=== PATIENT | female | born 1995 | race Caucasian/White ===

== ENCOUNTER 2020-11-29 23:03 | Inpatient (IN) ==
[2020-11-29] MEDS ORDERED: LORazepam 1 MG TAB SL STA (23:41)
[2020-11-30 00:07] LABS: Basophils # (auto) 0.02 K/uL (0-0.2); Basophils % (auto) 0.2 %; Eosinophils # (auto) 0.08 K/uL (0-0.5); Eosinophils % (auto) 0.7 %; Hematocrit (blood only) 42.5 % (37-47); Immature Granulocytes # (auto) 0.02 K/uL (0.00-0.02); Immature Granulocytes % (auto) 0.2 %; Lymphocytes # (auto) 1.99 K/uL (1.2-3.4); Mean Corpuscular Hemoglobin 32.2 pg (25-34); Mean Corpuscular Hgb Conc 35.3 g/dL (32-36); Mean Corpuscular Volume 91.2 fL (80-100); Mean Platelet Volume 9.6 fL (7.4-10.4); Monocytes # (auto) 0.91 K/uL (0.11-0.59); Monocytes % (auto) 8.2 %; Neutrophils # (auto) 8.03 K/uL (1.4-6.5); Neutrophils % (auto) 72.7 %; Platelet Count 322 K/uL (130-400); RDW Coefficient of Variation 12.2 % (11.5-14.5); Red Blood Count 4.66 M/uL (4.2-5.4); White Blood Count 11.05 K/uL (4.8-10.8)
[2020-11-30 00:10] LABS: Appearance Urine Clear (Clear); Bilirubin Urine Negative (Negative); Blood Urine Negative (Negative); Color Urine Yellow; Glucose Urine UA Negative (Negative); Ketones Urine Negative (Negative); Leukocyte Esterase Urine Negative (Negative); Nitrite Urine Negative (Negative); Protein Urine Negative (Negative); Specific Gravity Urine 1.016 (1.000-1.030); Urobilinogen Urine Negative (Negative); pH Urine 5.5 (4.5-7.5)
[2020-11-30 00:33] LABS: Albumin Level 4.4 gm/dl (3.4-5.0); BUN Creatinine Ratio 19.1 (10-20); Creatinine Clr Calc Pharmacy 146.9 ml/min; Est GFR (African American) 136.8 ml/min; Potassium 4.1 mmol/L (3.5-5.1)
[2020-11-30 00:37] LABS: Amphetamines+Metham, Urine Neg (Neg); Barbiturates, Urine Neg (Neg); Benzodiazepine, Urine Neg (Neg); Cocaine, Urine Neg (Neg); MDMA (Ecstacy), Urine Neg (Neg); Methadone, Urine Neg (Neg); Opiate, Urine Neg (Neg); Phencyclidine, Urine Neg (Neg)
[2020-11-30 00:38] LABS: Pregnancy Test, Serum Negative (Negative)
[2020-11-30 00:44] LABS: Acetaminophen < 2 ug/ml (10-30); Albumin Globulin Ratio 1.3 (0.9-2); Bilirubin,Total 0.8 mg/dl (0.2-1); Globulin 3.4 gm/dl (2.5-4.0); Salicylate < 1.7 mg/dl (2.8-20); Thyroid Stimulating Hormone 1.64 uIu/ml (0.300-4.500); Total Protein 7.9 gm/dl (6.4-8.2)
--- NOTE | 2020-11-30 00:56 | Emergency Department Note ---
Impression & Plan Mood disorder, Agitation ED Provider Note NAME: ATA AIKEN AGE: 25 SEX: F : 1995 ARRIVES VIA: Walk-In INFORMANT: Patient, ED PROVIDER(S): Juan Rader MD CHIEF COMPLAINT: Suicidal ideation HPI: This is a 25-year-old female who presents emergency department complaining of suicidal ideation. Patient reports she has been having suicidal thoughts for the past 2 days. Patient reports she is a previous suicide attempt and that she does have a plan. She reports she feels she needs medication adjustments including to her lithium. She has not done anything for the suicidal thoughts. She reports reports nothing really makes them better or worse. ROS: See above HPI for pertinent positives & negatives. A total of 10 systems reviewed and were otherwise negative. PAST MEDICAL HISTORY: See Below PAST SURGICAL HISTORY: See Below FAMILY HISTORY: See Below SOCIAL HISTORY: See Below HOME MEDICATIONS: See Below ALLERGIES: See Below VITALS: See Below PHYSICAL EXAMINATION: VITAL SIGNS - Vital signs and nursing notes were reviewed. GENERAL - 25-year-old female appearing stated age who is in no acute distress. Patient does appear agitated and is pacing around the room. SKIN - Without rashes. HEAD - NC/AT. EYES - PERRL with EOMI bilaterally. Sclera anicteric. Palpebral conjunctiva pink and moist with no injection noted. EARS - No deformities of external structures noted on gross examination bilaterally. NOSE - Midline and without cyanosis. No epistaxis or purulent drainage noted. Septum midline without deviation or septal hematoma noted. MOUTH/OROPHARYNX - Without perioral cyanosis. Buccal mucosa pink and moist and without leukoplakia. Tongue midline with equal elevation of palate bilaterally. No tonsillar hypertrophy, erythema, or exudates noted. NECK - Neck with FROM. Supple to palpation. No nuchal rigidity. LUNGS - Chest wall symmetric without accessory muscle use, intercostals retractions, or central cyanosis. Normal vesicular breath sounds CTA B/L. No wheezes, rales, or rhonchi appreciated. CARDIAC - RRR with S1/S2. No murmur, rubs, or gallops appreciated. ABDOMEN - Abdominal contour BS normoactive all four quadrants. No tenderness, palpable masses, hepatosplenomegaly, or ascites noted. EXTREMITIES - No clubbing or peripheral cyanosis. No pretibial edema present. +3/5 radial, posterior tibial, and dorsalis pedis pulses palpated throughout. +5/5 strength noted in UE/LE bilaterally. NEUROLOGIC - Cranial nerves II through XII grossly intact. Sensory intact to light touch throughout. Patellar reflexes +2/4. PSYCH - A&Ox3 and cooperates fully with examiner. Pt is very pleasant and interacts well with examiner. MEDICAL DECISION MAKING: Patient was seen and evaluated as above in room A6. Review was performed of sam sing notes and vital signs. I did review pertinent previous visits and patient history. After obtaining a thorough history and physical examination the above work up was performed. This is 25-year-old female who presents emergency department complaining of depression with suicidal plan. The patient it appears agitated and is pacing around the room. She was given Ativan to help her calm down. She was medically cleared by me and independently evaluated by psychiatric case management. She was subsequently admitted to [facility]. The patient was evaluated during a period of high volume and high acuity during the global COVID-19 pandemic, and that diagnosis was suspected/considered upon their initial presentation. Their evaluation, treatment and testing was consistent with current guidelines for patients who present with complaints or symptoms that may be related to COVID-19. Patient was seen while provider was wearing PPE. Triage Nursing notes reviewed. Prior medical records reviewed Vital Signs: reviewed and remarkable for no significant abnormalities Differential diagnosis: Mood disorder, infection, hypoglycemia, electrolyte abnormalities, cardiac sources, intracerebral event, toxicologic, trauma, neurologic, as well as other pathologies. ER treatment provided: See below Consultation(s): [facility] Past Med/Surg History Medical History (Updated 11/30/20 @ 05:51 by Juan Rader MD) Bipolar 1 disorder Social History Smoking Status: Never smoker Preferred Language: Marshallese Communication Ability: Effective All Purpose Clerk Required: No Beliefs That Will Affect Care: None Feels Safe at Home: Yes Assistive Devices: Glasses Allergies Allergies Allergy/AdvReac Type Severity Reaction Status Date / Time trazodone Allergy Headache Verified 11/29/20 23:51 Home Meds Home Medications Medication Instructions Recorded Confirmed Abilify 11/29/20 lithium carbonate 11/29/20 aripiprazole mg 11/30/20 hydroxyzine pamoate 11/30/20 levothyroxine 11/30/20 lithium carbonate mg PO 11/30/20 prazosin 11/30/20 Results & Data (ED) Vital Signs Vital Signs - 24 hr 11/29/20 23:09 11/30/20 02:36 Temperature 36.8 C Temperature Source Temporal Artery Scan Pulse Rate 88 Pulse Rate [Finger] 101 H Pulse Rhythm [Finger] Regular Respiratory Rate 18 20 Respiratory Depth Normal Normal Blood Pressure 132/87 Blood Pressure [Left Arm] 125/83 Blood Pressure Mean 102 Blood Pressure Mean [Left Arm] 97 Pulse Oximetry 97 98 Oxygen Delivery Method Room Air Room Air Sepsis Recent Fever Within 48 Hours No Sepsis New/Unexplained Change in Mental Status N/A Sepsis Action Taken by Nursing No Action Required Laboratory Data Result diagrams: 11/29/20 23:50 11/29/20 23:50 Lab Results 11/29/20 11/29/20 11/29/20 Range/Units 23:20 23:20 23:50 WBC 11.05 H (4.8-10.8) K/uL RBC 4.66 (4.2-5.4) M/uL Hgb 15.0 (12.0-16.0) g/dL Hct 42.5 (37-47) % MCV 91.2 (80-100) fL MCH 32.2 (25-34) pg MCHC 35.3 (32-36) g/dL RDW Std Deviation 41.0 (36.4-46.3) fL RDW Coeff of Collette 12.2 (11.5-14.5) % Plt Count 322 (130-400) K/uL MPV 9.6 (7.4-10.4) fL Immature Gran % (Auto) 0.2 % Neut % (Auto) 72.7 % Lymph % (Auto) 18.0 % [place] % (Auto) 8.2 % Eos % (Auto) 0.7 % Baso % (Auto) 0.2 % Neut # (Auto) 8.03 H (1.4-6.5) K/uL Lymph # (Auto) 1.99 (1.2-3.4) K/uL [place] # (Auto) 0.91 H (0.11-0.59) K/uL Eos # (Auto) 0.08 (0-0.5) K/uL Baso # (Auto) 0.02 (0-0.2) K/uL Immature Gran # (Auto) 0.02 (0.00-0.02) K/uL Sodium (136-145) mmol/L Potassium (3.5-5.1) mmol/L Chloride (98-107) mmol/L Carbon Dioxide (21-32) mmol/L Anion Gap (3-11) BUN (7-18) mg/dl Creatinine (0.6-1.2) mg/dl Est Cr Clr Drug Dosing ml/min Est GFR ( Amer) ml/min Est GFR (Non-Af Amer) ml/min BUN/Creatinine Ratio (10-20) Glucose (70-99) mg/dl Calcium (8.5-10.1) mg/dl Total Bilirubin (0.2-1) mg/dl AST (15-37) U/L ALT (12-78) U/L Alkaline Phosphatase (45-117) U/L Total Protein (6.4-8.2) gm/dl Albumin (3.4-5.0) gm/dl Globulin (2.5-4.0) gm/dl Albumin/Globulin Ratio (0.9-2) TSH (0.300-4.500) uIu/ml HCG, Qual (Negative) Urine Color Yellow Urine Appearance Clear (Clear) Urine pH 5.5 (4.5-7.5) Ur Specific [place] 1.016 (1.000-1.030) Urine Protein Negative (Negative) Urine Glucose (UA) Negative (Negative) Urine Ketones Negative (Negative) Urine Blood Negative (Negative) Urine Nitrite Negative (Negative) Urine Bilirubin Negative (Negative) Urine Urobilinogen Negative (Negative) Ur Leukocyte Esterase Negative (Negative) Salicylates (2.8-20) mg/dl Urine Opiates Screen Neg (Neg) Ur Methadone, Qual Neg (Neg) Acetaminophen (10-30) ug/ml Urine Barbiturates Neg (Neg) Ur Phencyclidine (PCP) Neg (Neg) U Amphetamin/Meth Scrn Neg (Neg) MDMA (Ecstasy) Screen Neg (Neg) U Benzodiazepines Scrn Neg (Neg) [place] (0.6-1.2) mmol/L Ur Cocaine Metabolite Neg (Neg) U Marijuana (THC) Screen Neg (Neg) Ethyl Alcohol mg/dL (0-3) mg/dl COVID-19 Eval Order SARS-CoV-2 (PCR) (Negative) 11/29/20 11/29/20 11/29/20 Range/Units 23:50 23:50 23:50 WBC (4.8-10.8) K/uL RBC (4.2-5.4) M/uL Hgb (12.0-16.0) g/dL Hct (37-47) % MCV (80-100) fL MCH (25-34) pg MCHC (32-36) g/dL RDW Std Deviation (36.4-46.3) fL RDW Coeff of Collette (11.5-14.5) % Plt Count (130-400) K/uL MPV (7.4-10.4) fL Immature Gran % (Auto) % Neut % (Auto) % Lymph % (Auto) % [place] % (Auto) % Eos % (Auto) % Baso % (Auto) % Neut # (Auto) (1.4-6.5) K/uL Lymph # (Auto) (1.2-3.4) K/uL [place] # (Auto) (0.11-0.59) K/uL Eos # (Auto) (0-0.5) K/uL Baso # (Auto) (0-0.2) K/uL Immature Gran # (Auto) (0.00-0.02) K/uL Sodium 138 (136-145) mmol/L Potassium 4.1 (3.5-5.1) mmol/L Chloride 109 H (98-107) mmol/L Carbon Dioxide 21 (21-32) mmol/L Anion Gap 8.0 (3-11) BUN 14 (7-18) mg/dl Creatinine 0.72 (0.6-1.2) mg/dl Est Cr Clr Drug Dosing 146.9 ml/min Est GFR ( Amer) 136.8 ml/min Est GFR (Non-Af Amer) 118.0 ml/min BUN/Creatinine Ratio 19.1 (10-20) Glucose 90 (70-99) mg/dl Calcium 9.0 (8.5-10.1) mg/dl Total Bilirubin 0.8 (0.2-1) mg/dl AST 21 (15-37) U/L ALT 30 (12-78) U/L Alkaline Phosphatase 84 (45-117) U/L Total Protein 7.9 (6.4-8.2) gm/dl Albumin 4.4 (3.4-5.0) gm/dl Globulin 3.4 (2.5-4.0) gm/dl Albumin/Globulin Ratio 1.3 (0.9-2) TSH 1.640 (0.300-4.500) uIu/ml HCG, Qual (Negative) Urine Color Urine Appearance (Clear) Urine pH (4.5-7.5) Ur Specific [place] (1.000-1.030) Urine Protein (Negative) Urine Glucose (UA) (Negative) Urine Ketones (Negative) Urine Blood (Negative) Urine Nitrite (Negative) Urine Bilirubin (Negative) Urine Urobilinogen (Negative) Ur Leukocyte Esterase (Negative) Salicylates < 1.7 L (2.8-20) mg/dl Urine Opiates Screen (Neg) Ur Methadone, Qual (Neg) Acetaminophen < 2 L (10-30) ug/ml Urine Barbiturates (Neg) Ur Phencyclidine (PCP) (Neg) U Amphetamin/Meth Scrn (Neg) MDMA (Ecstasy) Screen (Neg) U Benzodiazepines Scrn (Neg) [place] (0.6-1.2) mmol/L Ur Cocaine Metabolite (Neg) U Marijuana (THC) Screen (Neg) Ethyl Alcohol mg/dL < 3.0 (0-3) mg/dl COVID-19 Eval Order SARS-CoV-2 (PCR) (Negative) 11/29/20 11/29/20 11/30/20 Range/Units 23:50 23:50 00:25 WBC (4.8-10.8) K/uL RBC (4.2-5.4) M/uL Hgb (12.0-16.0) g/dL Hct (37-47) % MCV (80-100) fL MCH (25-34) pg MCHC (32-36) g/dL RDW Std Deviation (36.4-46.3) fL RDW Coeff of Collette (11.5-14.5) % Plt Count (130-400) K/uL MPV (7.4-10.4) fL Immature Gran % (Auto) % Neut % (Auto) % Lymph % (Auto) % [place] % (Auto) % Eos % (Auto) % Baso % (Auto) % Neut # (Auto) (1.4-6.5) K/uL Lymph # (Auto) (1.2-3.4) K/uL [place] # (Auto) (0.11-0.59) K/uL Eos # (Auto) (0-0.5) K/uL Baso # (Auto) (0-0.2) K/uL Immature Gran # (Auto) (0.00-0.02) K/uL Sodium (136-145) mmol/L Potassium (3.5-5.1) mmol/L Chloride (98-107) mmol/L Carbon Dioxide (21-32) mmol/L Anion Gap (3-11) BUN (7-18) mg/dl Creatinine (0.6-1.2) mg/dl Est Cr Clr Drug Dosing ml/min Est GFR ( Amer) ml/min Est GFR (Non-Af Amer) ml/min BUN/Creatinine Ratio (10-20) Glucose (70-99) mg/dl Calcium (8.5-10.1) mg/dl Total Bilirubin (0.2-1) mg/dl AST (15-37) U/L ALT (12-78) U/L Alkaline Phosphatase (45-117) U/L Total Protein (6.4-8.2) gm/dl Albumin (3.4-5.0) gm/dl Globulin (2.5-4.0) gm/dl Albumin/Globulin Ratio (0.9-2) TSH (0.300-4.500) uIu/ml HCG, Qual Negative (Negative) Urine Color Urine Appearance (Clear) Urine pH (4.5-7.5) Ur Specific [place] (1.000-1.030) Urine Protein (Negative) Urine Glucose (UA) (Negative) Urine Ketones (Negative) Urine Blood (Negative) Urine Nitrite (Negative) Urine Bilirubin (Negative) Urine Urobilinogen (Negative) Ur Leukocyte Esterase (Negative) Salicylates (2.8-20) mg/dl Urine Opiates Screen (Neg) Ur Methadone, Qual (Neg) Acetaminophen (10-30) ug/ml Urine Barbiturates (Neg) Ur Phencyclidine (PCP) (Neg) U Amphetamin/Meth Scrn (Neg) MDMA (Ecstasy) Screen (Neg) U Benzodiazepines Scrn (Neg) [place] < 0.2 L (0.6-1.2) mmol/L Ur Cocaine Metabolite (Neg) U Marijuana (THC) Screen (Neg) Ethyl Alcohol mg/dL (0-3) mg/dl COVID-19 Eval Order Covid19 at [facility] SARS-CoV-2 (PCR) (Negative) 11/30/20 Range/Units 00:25 WBC (4.8-10.8) K/uL RBC (4.2-5.4) M/uL Hgb (12.0-16.0) g/dL Hct (37-47) % MCV (80-100) fL MCH (25-34) pg MCHC (32-36) g/dL RDW Std Deviation (36.4-46.3) fL RDW Coeff of Collette (11.5-14.5) % Plt Count (130-400) K/uL MPV (7.4-10.4) fL Immature Gran % (Auto) % Neut % (Auto) % Lymph % (Auto) % [place] % (Auto) % Eos % (Auto) % Baso % (Auto) % Neut # (Auto) (1.4-6.5) K/uL Lymph # (Auto) (1.2-3.4) K/uL [place] # (Auto) (0.11-0.59) K/uL Eos # (Auto) (0-0.5) K/uL Baso # (Auto) (0-0.2) K/uL Immature Gran # (Auto) (0.00-0.02) K/uL Sodium (136-145) mmol/L Potassium (3.5-5.1) mmol/L Chloride (98-107) mmol/L Carbon Dioxide (21-32) mmol/L Anion Gap (3-11) BUN (7-18) mg/dl Creatinine (0.6-1.2) mg/dl Est Cr Clr Drug Dosing ml/min Est GFR ( Amer) ml/min Est GFR (Non-Af Amer) ml/min BUN/Creatinine Ratio (10-20) Glucose (70-99) mg/dl Calcium (8.5-10.1) mg/dl Total Bilirubin (0.2-1) mg/dl AST (15-37) U/L ALT (12-78) U/L Alkaline Phosphatase (45-117) U/L Total Protein (6.4-8.2) gm/dl Albumin (3.4-5.0) gm/dl Globulin (2.5-4.0) gm/dl Albumin/Globulin Ratio (0.9-2) TSH (0.300-4.500) uIu/ml HCG, Qual (Negative) Urine Color Urine Appearance (Clear) Urine pH (4.5-7.5) Ur Specific [place] (1.000-1.030) Urine Protein (Negative) Urine Glucose (UA) (Negative) Urine Ketones (Negative) Urine Blood (Negative) Urine Nitrite (Negative) Urine Bilirubin (Negative) Urine Urobilinogen (Negative) Ur Leukocyte Esterase (Negative) Salicylates (2.8-20) mg/dl Urine Opiates Screen (Neg) Ur Methadone, Qual (Neg) Acetaminophen (10-30) ug/ml Urine Barbiturates (Neg) Ur Phencyclidine (PCP) (Neg) U Amphetamin/Meth Scrn (Neg) MDMA (Ecstasy) Screen (Neg) U Benzodiazepines Scrn (Neg) [place] (0.6-1.2) mmol/L Ur Cocaine Metabolite (Neg) U Marijuana (THC) Screen (Neg) Ethyl Alcohol mg/dL (0-3) mg/dl COVID-19 Eval Order SARS-CoV-2 (PCR) NEGATIVE (Negative) Administered Medications Discontinued Medications Benztropine Mesylate (Benztropine Mesylate 1 Mg Tab) 1 mg PO NOW STA Stop: 11/30/20 01:14 Last Admin: 11/30/20 01:27 Dose: 1 mg Documented by: [id number] Haloperidol (Haloperidol 5 Mg Tab) 5 mg PO NOW STA Stop: 11/30/20 01:14 Last Admin: 11/30/20 01:27 Dose: 5 mg Documented by: [id number] Lorazepam (Lorazepam 1 Mg Tab) 2 mg SL NOW STA Stop: 11/29/20 23:42 Last Admin: 11/30/20 00:02 Dose: 2 mg Documented by: [id number] Discharge Plan Visit Data Chief Complaint: Mental Health Evaluation Stated Complaint: SUICIDAL THOUGHTS ED Provider: Juan Rader Discharge Problem: Mood disorder, Agitation Patient Disposition: Admitted As Inpatient Discharge Instructions Interventions: ED Discharge Assessment Last Done: 11/30/20 02:46
[2020-11-30] MEDS ORDERED: BENZTROPINE MESYLATE 1 MG TAB PO STA (01:13)
[2020-11-30] MEDS ORDERED: haloperidoL 5 MG TAB PO STA (01:13)
[2020-11-30] MEDS ORDERED: ALUMINUM/MAGNESIUM SUSP 30 ML UDC PO PRN (02:37)
[2020-11-30] MEDS ORDERED: SODIUM CHLORIDE 0.65% NA SOLN 45 ML (OCEAN) PRN (02:37)
[2020-11-30] MEDS ORDERED: ACETAMINOPHEN 325 MG TAB PO PRN (02:37)
[2020-11-30] MEDS ORDERED: hydrOXYzine HCl 25 MG TAB PO PRN ×2 (02:37)
[2020-11-30] MEDS ORDERED: BISMUTH SUBSALICYLATE LIQD 236 ML PO PRN (02:37)
[2020-11-30] MEDS ORDERED: MAGNESIUM HYDROXIDE SUSP 30 ML UDC PO PRN (02:37)
[2020-11-30] MEDS ORDERED: clonazePAM 0.5 MG TAB PO STA (17:03)
[2020-11-30] MEDS ORDERED: ARIPiprazole 10 MG TAB PO STA (18:55)
--- NOTE | 2020-11-30 19:24 | History & Physical ---
Date of Service November 30, 2020 Impression / Recommendations Impression 25-year-old this is her third psychiatric admission in 3 months. Was admitted to [facility] treated for depression and bipolar discharge home and attempted to overdose in an unwitnessed case a day after discharge was subsequently readmitted to [facility] after [facility] was not able to admit her due to beds. Exams in the emergency room 11/29/2020 with ongoing suicidal thoughts unmotivated for admission but her friends thought she needed to be in the hospital" patient guarded with some details still spent time pacing on the unit feels very anxious but feels that Vistaril medications do not help. She is admitted to a locked psychiatric unit she will receive q. 15-minute checks for suicidal thoughts she will be monitored closely she will attend groups and also have one-on-one meetings with staff and therapists medications are also being reviewed past history of lithium and Abilify. (1) Mood disorder: Recently diagnosed with bipolar disorder reports ongoing depression odd affect restart Abilify 10 mg daily with plan to titrate up patient reported Latuda worked better however unable to obtain that without insurance Present on Admission?: Yes (2) Bipolar 1 disorder: History of being on Abilify and lithium we will hold off on lithium for now given patient's history of overdose has had 2 serious overdose attempts and lithium can be very toxic in overdose consider low-dose Lamictal Present on Admission?: Yes (3) Anxiety: Patient reports ongoing anxiety got agitated in the emergency room required haloperidol. Will start Klonopin 0.5 twice daily patient has no history of alcohol use no history of alcohol or substance abuse we will also start as needed propanolol as needed for agitation patient to start therapy and breathing exercises. Present on Admission?: Yes Inventory Assets Strengths: Patient works 2 jobs and lives on her own Needs: Outpatient treatment trauma care Risk Factors Assessment Do You Have Access To A Gun?: No Substance Use Disorders: No Previous Attempt: Yes Previous Attempt; Planned: Yes Previous Psychiatric Hospitalization: Yes Protective Factors Assessment : No Responsible for Young Children: No Employed: Yes Stable Relationships: No Supportive Family: No Psychiatric History Identifying Data ATA AIKEN is a 25-year-old F who currently lives in with her roommates with history of suicide attempts and, has a history of depression anxiety and bipolar disorder , and was admitted on 11/30/20 02:37 on a 302 involuntary co mmitment for suicidal thoughts with a plan.. Chief Complaint "I just feel bad and had thoughts of suicide to my friend asked him to come" . History of Present Illness 25-year-old single female who was apparently stable on to the COVID pandemic. Patient reports no history of prior psychiatric treatment prior to COVID. However during recovery she noticed his worsening mood increased isolation and difficulty with her anxiety during that code with. She had 2 friends who during the. And she was unable to see either of them why they were in the hospital. She reports feeling overwhelmed and very concerned about the isolation she had 2 hospitalizations in August 2020 she spent 2 weeks at at [facility] and a day after she got out from [facility] she attempted to overdose on her medication that were prescribed to her in [facility] and was subsequently admitted at [facility] where she did spend 2 weeks. Reports stopping her medications on discharge she did not think they are working and now realizes he may have been working she did not follow-up with outpatient appointments and reports worsening suicidality is unable to identify any new stressors except for the fact that her mood is very low she did report periods of mood instability.. Self increased agitation and anger and significant anxiety. She was subsequently given a diagnosis of bipolar disorder and started on Abilify and lithium. She subsequently discontinued these medications she reported initially been on Latuda which helped her a lot but they were unable to continue Depakote at the time she did not have insurance. Per Case Management ED Psych by Ash Gordon "Met with the patient during Dr. Mathew examination to complete MH Brief Assessment then completed Psychiatric Mental Health Evaluation. When asked if she is having suicidal thoughts, the patient reports kind of. The patient scored an 18 on her Suicide Assessment. The patient appears anxious, pacing in the room. She reports she is supposed to be taking Abilify and [place], but doesnt know what her doses are. The patient denies any current stressors and reports suicidal thoughts for her depressive symptoms. The patient reports her diet is okay and reports poor sleep as sometimes, but not much lately (problems falling and staying asleep). The patient denies recent manic episodes but reports high anxiety (7-8 in the ER) with racing thoughts as her symptoms. The patient denies hallucinations, delusional thinking, drug or alcohol use and being a smoker. The patient denied a history of abuse or trauma, but her visitor stated thats a lie, to which the patient commented, dont call me out like that. The patient reports she has providers through [facility]. Medical clearance explained. Spoke with DEEPTHI Cheema after meeting with the patient and the patient expressed suicidal ideation with a plan to overdose. Deni reports the patient was inpatient twice in August, once after [facility] after threatening to overdose then 2 weeks later at [facility] after actually overdosing on her medications." Today she reports ongoing depression and anxiety and wanting her medications to be titrated". She denies hallucinations visual or auditory she does admit to ongoing passive thoughts of but denies any active thoughts she does admit to ongoing depression and reports the last time she felt well was prior to COVID. Reports not being close to her family she does talk to them occasionally her main support structure her friends she reports a family history of her father and her older sister will been diagnosed with bipolar. Past Psychiatric History Previous Psych History: As noted above in the HPI 5 years ago she had a suicide attempt [place] down [place] the train tracks. Current Psychiatric Diagnosis: Mood disorder unspecified Outpatient Services: Started seeing primary care services at [facility] Previous Psych Admissions: [facility] in August 2020 [facility] august 2020 Do You Have Access To A Gun?: No History of Previous Suicide Attempt: Yes Describe Attempts in the Past: Recent suicide attempt August 2020 by overdose Past Medication Trials: Latuda Past Head Trauma/Neuro History History of Concussion/Seizure: No Allergies Allergy/AdvReac Type Severity Reaction Status Date / Time trazodone Allergy Headache Verified 11/29/20 23:51 Family History Family History of: Other Mood Disorders and Doesn't Know Family Mental Health History Comment: Both father and sister have bipolar disorder Alcohol History Hx of Alcohol Use Over the Past 12 Months: No AUDIT Total Score: 0 Smoking Use Have You Smoked or Used Tobacco Products in the Last 30 Days: No Smoking Status: Never smoker Substance History Hx of Prescription Med Misuse Over the Past 12 Months: No Hx of Over the Counter Med Misuse Over the Past 12 Months: No Hx of Inhalent Misuse Over the Past 12 Months: No Hx of Organic Substance Use Over the Past 12 Months: No Hx of Illegal Substances/Street Drug Use Over Past 12 Months: No Problems as a Result of Past Substance Use: None Identified Personal History Living Arrangements: Apartment Highest Grade Completed: High School Graduate Beliefs That Will Affect Care: None Current Legal Problems: No Hx Legal Problems: No Patient History Medical History (Updated 11/30/20 @ 19:22 by Perri Greenfield MD) Bipolar 1 disorder Social History Smoking Status: Never smoker Preferred Language: [place] Communication Ability: Effective 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 Beliefs That Will Affect Care: None Feels Safe at Home: Yes Assistive Devices: Glasses Physical Exam Psychiatric: Orientation: oriented x 3, oriented to person, oriented to time and + guarded Apperance: appropriately dressed Eye Contact: + fair eye contact Motor Behavior: steady gait and station and + psychomotor agitation Mild agitation pacing Speech: normal rate/rhythm/volume of speech Affect: euthymic affect and + anxious affect Mood: + depressed mood, + anxious mood and + irritable mood Thought Process: goal directed thought process and linear/logical thought process Thought Content: + preoccupation Suicidal Thoughts: denies suicidal plan and denies suicidal intent; + reports suicidal thoughts Homicidal Thoughts: denies homicidal thoughts and denies homicidal plan Hallucinations: no auditory hallucinations, no visual hallucinations and no tactile hallucinations Cognition: recent memory grossly intact, remote memory grossly intact and attention grossly intact Estimated Intelligence: consistent with education level Insight: + limited insight Judgement: + limited judgement Vital Signs (Past 24 Hours): Last Vital Signs Temp 36.8 C 11/30/20 19:03 Pulse 75 11/30/20 19:03 Resp 18 11/30/20 19:03 BP 102/58 L 11/30/20 19:03 Pulse Ox 96 11/30/20 19:03 Physical Examination: Exam by Dr. Juan Rader reviewed in the ED done 11/29/2020 for the purposes of this exam and evaluation accepted as current and correct and sufficient for the purposes of this evaluation. Results & Data (U) Laboratory Results Laboratory Results - last 24 hr 11/29/20 11/29/20 11/29/20 23:20 23:20 23:50 WBC 11.05 H RBC 4.66 Hgb 15.0 Hct 42.5 MCV 91.2 MCH 32.2 MCHC 35.3 RDW Std Deviation 41.0 RDW Coeff of Collette 12.2 Plt Count 322 MPV 9.6 Immature Gran % (Auto) 0.2 Neut % (Auto) 72.7 Lymph % (Auto) 18.0 [place] % (Auto) 8.2 Eos % (Auto) 0.7 Baso % (Auto) 0.2 Neut # (Auto) 8.03 H Lymph # (Auto) 1.99 [place] # (Auto) 0.91 H Eos # (Auto) 0.08 Baso # (Auto) 0.02 Immature Gran # (Auto) 0.02 Sodium Potassium Chloride Carbon Dioxide Anion Gap BUN Creatinine Est Cr Clr Drug Dosing Est GFR ( Amer) Est GFR (Non-Af Amer) BUN/Creatinine Ratio Glucose Calcium Total Bilirubin AST ALT Alkaline Phosphatase Total Protein Albumin Globulin Albumin/Globulin Ratio TSH HCG, Qual Urine Color Yellow Urine Appearance Clear Urine pH 5.5 Ur Specific [place] 1.016 Urine Protein Negative Urine Glucose (UA) Negative Urine Ketones Negative Urine Blood Negative Urine Nitrite Negative Urine Bilirubin Negative Urine Urobilinogen Negative Ur Leukocyte Esterase Negative Salicylates Urine Opiates Screen Neg Ur Methadone, Qual Neg Acetaminophen Urine Barbiturates Neg Ur Phencyclidine (PCP) Neg U Amphetamin/Meth Scrn Neg MDMA (Ecstasy) Screen Neg U Benzodiazepines Scrn Neg [place] Ur Cocaine Metabolite Neg U Marijuana (THC) Screen Neg Ethyl Alcohol mg/dL COVID-19 Eval Order SARS-CoV-2 (PCR) 11/29/20 11/29/20 11/29/20 23:50 23:50 23:50 WBC RBC Hgb Hct MCV MCH MCHC RDW Std Deviation RDW Coeff of Collette Plt Count MPV Immature Gran % (Auto) Neut % (Auto) Lymph % (Auto) [place] % (Auto) Eos % (Auto) Baso % (Auto) Neut # (Auto) Lymph # (Auto) [place] # (Auto) Eos # (Auto) Baso # (Auto) Immature Gran # (Auto) Sodium 138 Potassium 4.1 Chloride 109 H Carbon Dioxide 21 Anion Gap 8.0 BUN 14 Creatinine 0.72 Est Cr Clr Drug Dosing 146.9 Est GFR ( Amer) 136.8 Est GFR (Non-Af Amer) 118.0 BUN/Creatinine Ratio 19.1 Glucose 90 Calcium 9.0 Total Bilirubin 0.8 AST 21 ALT 30 Alkaline Phosphatase 84 Total Protein 7.9 Albumin 4.4 Globulin 3.4 Albumin/Globulin Ratio 1.3 TSH 1.640 HCG, Qual Urine Color Urine Appearance Urine pH Ur Specific [place] Urine Protein Urine Glucose (UA) Urine Ketones Urine Blood Urine Nitrite Urine Bilirubin Urine Urobilinogen Ur Leukocyte Esterase Salicylates < 1.7 L Urine Opiates Screen Ur Methadone, Qual Acetaminophen < 2 L Urine Barbiturates Ur Phencyclidine (PCP) U Amphetamin/Meth Scrn MDMA (Ecstasy) Screen U Benzodiazepines Scrn [place] Ur Cocaine Metabolite U Marijuana (THC) Screen Ethyl Alcohol mg/dL < 3.0 COVID-19 Eval Order SARS-CoV-2 (PCR) 11/29/20 11/29/20 11/30/20 23:50 23:50 00:25 WBC RBC Hgb Hct MCV MCH MCHC RDW Std Deviation RDW Coeff of Collette Plt Count MPV Immature Gran % (Auto) Neut % (Auto) Lymph % (Auto) [place] % (Auto) Eos % (Auto) Baso % (Auto) Neut # (Auto) Lymph # (Auto) [place] # (Auto) Eos # (Auto) Baso # (Auto) Immature Gran # (Auto) Sodium Potassium Chloride Carbon Dioxide Anion Gap BUN Creatinine Est Cr Clr Drug Dosing Est GFR ( Amer) Est GFR (Non-Af Amer) BUN/Creatinine Ratio Glucose Calcium Total Bilirubin AST ALT Alkaline Phosphatase Total Protein Albumin Globulin Albumin/Globulin Ratio TSH HCG, Qual Negative Urine Color Urine Appearance Urine pH Ur Specific [place] Urine Protein Urine Glucose (UA) Urine Ketones Urine Blood Urine Nitrite Urine Bilirubin Urine Urobilinogen Ur Leukocyte Esterase Salicylates Urine Opiates Screen Ur Methadone, Qual Acetaminophen Urine Barbiturates Ur Phencyclidine (PCP) U Amphetamin/Meth Scrn MDMA (Ecstasy) Screen U Benzodiazepines Scrn [place] < 0.2 L Ur Cocaine Metabolite U Marijuana (THC) Screen Ethyl Alcohol mg/dL COVID-19 Eval Order Covid19 at [facility] SARS-CoV-2 (PCR) 11/30/20 00:25 WBC RBC Hgb Hct MCV MCH MCHC RDW Std Deviation RDW Coeff of Collette Plt Count MPV Immature Gran % (Auto) Neut % (Auto) Lymph % (Auto) [place] % (Auto) Eos % (Auto) Baso % (Auto) Neut # (Auto) Lymph # (Auto) [place] # (Auto) Eos # (Auto) Baso # (Auto) Immature Gran # (Auto) Sodium Potassium Chloride Carbon Dioxide Anion Gap BUN Creatinine Est Cr Clr Drug Dosing Est GFR ( Amer) Est GFR (Non-Af Amer) BUN/Creatinine Ratio Glucose Calcium Total Bilirubin AST ALT Alkaline Phosphatase Total Protein Albumin Globulin Albumin/Globulin Ratio TSH HCG, Qual Urine Color Urine Appearance Urine pH Ur Specific [place] Urine Protein Urine Glucose (UA) Urine Ketones Urine Blood Urine Nitrite Urine Bilirubin Urine Urobilinogen Ur Leukocyte Esterase Salicylates Urine Opiates Screen Ur Methadone, Qual Acetaminophen Urine Barbiturates Ur Phencyclidine (PCP) U Amphetamin/Meth Scrn MDMA (Ecstasy) Screen U Benzodiazepines Scrn [place] Ur Cocaine Metabolite U Marijuana (THC) Screen Ethyl Alcohol mg/dL COVID-19 Eval Order SARS-CoV-2 (PCR) NEGATIVE Current Inpatient Medications Current Inpatient Medications: Current Inpatient Medications Acetaminophen (Acetaminophen 325 Mg Tab) 650 mg PO Q4H PRN PRN Reason: Headache or Minor Fever Stop: 12/30/20 02:36 Al Hydrox/Mg Hydrox/Simethicone (Aluminum/Magnesium Susp 30 Ml Udc) 30 ml PO Q4H PRN PRN Reason: GI Upset Stop: 12/30/20 02:36 Aripiprazole (Aripiprazole 10 Mg Tab) 10 mg PO QAM SHANE Stop: 12/31/20 08:59 Aripiprazole (Aripiprazole 10 Mg Tab) 10 mg PO NOW STA Stop: 11/30/20 18:56 Bismuth Subsalicylate (Bismuth Subsalicylate Liqd 236 Ml) 15 ml PO PRN PRN PRN Reason: Loose Stool Stop: 12/30/20 02:36 Clonazepam (Clonazepam 0.5 Mg Tab) 0.5 mg PO BID SHANE Stop: 12/30/20 20:59 Magnesium Hydroxide (Magnesium Hydroxide Susp 30 Ml Udc) 30 ml PO DAILY PRN PRN Reason: Constipation Stop: 12/30/20 02:36 Propranolol HCl (Propranolol Hcl 10 Mg Tab) 10 mg PO BID SHANE Stop: 12/30/20 20:59 Sodium Chloride (Sodium Chloride 0.65% Na Soln 45 Ml ([place])) 1 - 2 sprays NA PRN PRN PRN Reason: Nasal Dryness/Congestion Stop: 12/30/20 02:36
[2020-11-30] MEDS ORDERED: HALOPERIDOL LACTATE 5 MG/ML 1 ML VIAL IM STA (20:18)
[2020-11-30] MEDS ORDERED: diphenhydrAMINE 50 MG/ML VIAL IM STA (20:19)
[2020-11-30] MEDS ORDERED: diphenhydrAMINE 50 MG/ML VIAL ONE (20:26)
[2020-11-30] MEDS: clonazePAM 0.5 MG TAB PO SCH (21:48)
[2020-11-30] MEDS: PROPRANOLOL HCL 10 MG TAB PO SCH (21:48)
[2020-12-01] MEDS: ARIPiprazole 10 MG TAB PO SCH (09:18)
[2020-12-01] MEDS: clonazePAM 0.5 MG TAB PO SCH ×2 (09:18→21:26)
[2020-12-01] MEDS: PROPRANOLOL HCL 10 MG TAB PO SCH ×2 (09:29→21:25)
[2020-12-01] MEDS ORDERED: HALOPERIDOL LACTATE 5 MG/ML 1 ML VIAL IM PRN (09:59)
[2020-12-01] MEDS ORDERED: LORazepam 2 MG/ML VIAL (IM USE) IM PRN (10:00)
[2020-12-01] MEDS ORDERED: diphenhydrAMINE 50 MG/ML VIAL IM PRN (10:01)
[2020-12-01] MEDS ORDERED: LORazepam 1 MG TAB PO PRN (10:08)
[2020-12-01] MEDS ORDERED: DIVALPROEX DELAY RELEASE 500 MG TAB PO SCH (10:15)
[2020-12-01] MEDS: OXcarbazepine 150 MG TABLET PO SCH ×2 (12:14→21:25)
--- NOTE | 2020-12-01 19:29 | Psychiatric Progress Note ---
Date of Service December 01, 2020 Impression / Recommendations Impression 25-year-old this is her third psychiatric admission in 3 months. Was admitted to [facility] treated for depression and bipolar discharge home and attempted to overdose in an unwitnessed case a day after discharge was subsequently readmitted to [facility] after [facility] was not able to admit her due to beds. Exams in the emergency room 11/29/2020 with ongoing suicidal thoughts unmotivated for admission but her friends thought she needed to be in the hospital" patient guarded with some details still spent time pacing on the unit feels very anxious but feels that Vistaril medications do not help. She is admitted to a locked psychiatric unit she will receive q. 15-minute checks for suicidal thoughts she will be monitored closely she will attend groups and also have one-on-one meetings with staff and therapists medications are also being reviewed past history of lithium and Abilify. (1) Mood disorder: 12/01/20-feels medication are helping. Trileptal added today because she had failed Depakote did not work we will continue Trileptal 150 mg twice daily. Continue Abilify. Patient has required the use of as needed haloperidol. We will continue to monitor denying thoughts of suicide. 11/30/20Recently diagnosed with bipolar disorder reports ongoing depression odd affect restart Abilify 10 mg daily with plan to titrate up patient reported Latuda worked better however unable to obtain that without insurance (2) Bipolar 1 disorder: 12/01/20-feels medication are helping. Trileptal added today because she had failed Depakote did not work we will continue Trileptal 150 mg twice daily. Continue Abilify. Patient has required the use of as needed haloperidol. We will continue to monitor denying thoughts of suicide. 11/30/20- History of being on Abilify and lithium we will hold off on lithium for now given patient's history of overdose has had 2 serious overdose attempts and lithium can be very toxic in overdose consider low-dose Lamictal (3) Anxiety: 12/01/20-patient will take propanolol daily patient feels that it is helping. Continue Klonopin 0.5 mg twice daily patient with no history of substance abuse and significant anxiety for which she escalates very easily. We will continue to monitor. 6-9-21 Patient reports ongoing anxiety got agitated in the emergency room required haloperidol. Will start Klonopin 0.5 twice daily patient has no history of alcohol use no history of alcohol or substance abuse we will also start as needed propanolol as needed for agitation patient to start therapy and breathing exercises. Inventory Assets Strengths: Patient works 2 jobs and lives on her own Needs: Outpatient treatment trauma care Risk Factors Assessment Do You Have Access To A Gun?: No Substance Use Disorders: No Previous Attempt: Yes Previous Attempt; Planned: Yes Previous Psychiatric Hospitalization: Yes Protective Factors Assessment : No Responsible for Young Children: No Employed: Yes Stable Relationships: No Supportive Family: No Interval History Chief Complaint "[I want to do a little bit more about my meds and I think I am doing better.]". Review of Systems Sleep Information Total Hours of Sleep: 8 Meal Information Percent Meal Consumed - Breakfast: 100 Percent Meal Consumed - Lunch: 100 Percent Meal Consumed - Dinner: 100 Subjective Subjective Patient was seen & assessed and interval progress reviewed with nursing and social work. Patient has had difficulty the last 24 hours with anxiety pacing agitation. Last night patient required IM injections for her anxiety. She also requested IM injections this morning. When asked patient what was going on patient reported I just get anxious and I need something patient with a very disconnected affect but is also noticed on the phone laughing very happy very verbal. Patient approached senior writer at this p.m. requesting to know which medication she would be staying on which were only going to be used in the hospital I just came to this hospital to get my medications fixed I think the street now I think I am ready to go" patient is denying suicidal ideation when asked about her serious overdose attempt right after she got out of hospital patient reported I do not think medications are working" patient reported that she thinks this type for her to leave denying suicidal ideation and homicidal ideation no obvious psychosis in terms of response to internal stimuli. Patient however remains guarded. Physical Exam Psychiatric Orientation: oriented x 3, oriented to person, oriented to time and + guarded Apperance: appropriately dressed Eye Contact: + fair eye contact Motor Behavior: steady gait and station; no psychomotor agitation Speech: normal rate/rhythm/volume of speech Affect: euthymic affect and + anxious affect Mood: + depressed mood, + anxious mood and + irritable mood Thought Process: goal directed thought process and linear/logical thought process Thought Content: + preoccupation Suicidal Thoughts: denies suicidal thoughts, denies suicidal plan and denies suicidal intent Homicidal Thoughts: denies homicidal thoughts and denies homicidal plan Hallucinations: no auditory hallucinations and no visual hallucinations Cognition: recent memory grossly intact, remote memory grossly intact and attention grossly intact Estimated Intelligence: consistent with education level Insight: + fair insight Patient is willing to take medications. Judgement: + limited judgement Has aPatient has difficulty coping strategies escalates easily quiet IM medication since admission. Vital Signs (Past 24 Hours) Last Vital Signs Temp 36.4 C L 12/01/20 06:34 Pulse 90 12/01/20 09:20 Resp 16 12/01/20 06:34 BP 109/78 12/01/20 09:20 Pulse Ox 96 11/30/20 19:[address] Juan Rader reviewed in the ED done 11/29/2020 for the purposes of this exam and evaluation accepted as current and correct and sufficient for the purposes of this evaluation. Results & Data (U) Current Inpatient Medications Current Inpatient Medications: Current Inpatient Medications Acetaminophen (Acetaminophen 325 Mg Tab) 650 mg PO Q4H PRN PRN Reason: Headache or Minor Fever Stop: 12/30/20 02:36 Al Hydrox/Mg Hydrox/Simethicone (Aluminum/Magnesium Susp 30 Ml Udc) 30 ml PO Q4H PRN PRN Reason: GI Upset Stop: 12/30/20 02:36 Aripiprazole (Aripiprazole 10 Mg Tab) 10 mg PO QAM SHANE Stop: 12/31/20 08:59 Last Admin: 12/01/20 09:18 Dose: 10 mg Documented by: Bismuth Subsalicylate (Bismuth Subsalicylate Liqd 236 Ml) 15 ml PO PRN PRN PRN Reason: Loose Stool Stop: 12/30/20 02:36 Clonazepam (Clonazepam 0.5 Mg Tab) 0.5 mg PO BID SHANE Stop: 12/30/20 20:59 Last Admin: 12/01/20 09:18 Dose: 0.5 mg Documented by: Diphenhydramine HCl (Diphenhydramine 50 Mg/Ml Vial) 50 mg IM Q6 PRN PRN Reason: Agitation Stop: 12/31/20 10:00 Last Admin: 12/01/20 14:23 Dose: 50 mg Documented by: Diphenhydramine HCl (Diphenhydramine Capsule 25 Mg Cap) 50 mg PO Q6 PRN PRN Reason: Agitation, anxiety Stop: 12/31/20 10:05 Haloperidol (Haloperidol 5 Mg Tab) 5 mg PO Q6 PRN PRN Reason: Agitation Stop: 12/31/20 11:59 Haloperidol Lactate (Haloperidol Lactate 5 Mg/Ml 1 Ml Vial) 5 mg IM Q6 PRN PRN Reason: Agitation Stop: 12/31/20 09:58 Last Admin: 12/01/20 13:35 Dose: 5 mg Documented by: Lorazepam (Lorazepam 2 Mg/Ml Vial (Im Use)) 2 mg IM Q6 PRN PRN Reason: Agitation Stop: 12/31/20 09:59 Last Admin: 12/01/20 13:38 Dose: 2 mg Documented by: Lorazepam (Lorazepam 1 Mg Tab) 1 mg PO Q6 PRN PRN Reason: Allergic Symptoms Stop: 12/31/20 10:07 Magnesium Hydroxide (Magnesium Hydroxide Susp 30 Ml Udc) 30 ml PO DAILY PRN PRN Reason: Constipation Stop: 12/30/20 02:36 Oxcarbazepine (Oxcarbazepine 150 Mg Tablet) 150 mg PO BID SHANE Stop: 12/31/20 11:29 Last Admin: 12/01/20 12:14 Dose: 150 mg Documented by: Propranolol HCl (Propranolol Hcl 10 Mg Tab) 10 mg PO BID SHANE Stop: 12/30/20 20:59 Last Admin: 12/01/20 09:29 Dose: 10 mg Documented by: Sodium Chloride (Sodium Chloride 0.65% Na Soln 45 Ml ([place])) 1 - 2 sprays NA PRN PRN PRN Reason: Nasal Dryness/Congestion Stop: 12/30/20 02:36 Mental Health & Subst Abuse Tx Psychiatrist Name of Psychiatrist: [facility]- DWAIN Amaro Therapist Name of Therapist: [facility]-Meka Rodriguez [employer] Name of Tire Groover: Denies Post Discharge Appointments Primary Care Physician Name Of Family Doctor: Pérezies
[2020-12-01] MEDS: haloperidoL 5 MG TAB PO PRN (19:39)
[2020-12-01] MEDS: diphenhydrAMINE Capsule 25 MG CAP PO PRN (21:26)
[2020-12-02 08:52] LABS: Glucose Fasting 82 mg/dl (70-99)
[2020-12-02 08:59] LABS: Chol HDL Ratio 6; Cholesterol 119 mg/dl (0-200); HDL Cholesterol 19 mg/dl; LDL Cholesterol Calculated 85 mg/dl; Triglycerides 75 mg/dl (0-150); VLDL Cholesterol 15 mg/dl
[2020-12-02] MEDS: ARIPiprazole 10 MG TAB PO SCH (09:04)
[2020-12-02] MEDS: OXcarbazepine 150 MG TABLET PO SCH ×2 (09:04→20:31)
[2020-12-02] MEDS: clonazePAM 0.5 MG TAB PO SCH ×2 (09:05→20:31)
[2020-12-02] MEDS: haloperidoL 5 MG TAB PO PRN ×2 (09:09→20:31)
[2020-12-02] MEDS: PROPRANOLOL HCL 10 MG TAB PO SCH ×3 (09:12→20:34)
--- NOTE | 2020-12-02 12:28 | Psychiatric Progress Note ---
Date of Service December 02, 2020 Impression / Recommendations Impression 25-year-old this is her third psychiatric admission in 3 months. Was admitted to [facility] treated for depression and bipolar discharge home and attempted to overdose in an unwitnessed case a day after discharge was subsequently readmitted to [facility] after [facility] was not able to admit her due to beds. Exams in the emergency room 11/29/2020 with ongoing suicidal thoughts unmotivated for admission but her friends thought she needed to be in the hospital" patient guarded with some details still spent time pacing on the unit feels very anxious but feels that Vistaril medications do not help.--reviewed 12/02/20, admit impression per Dr. Greenfield. 12/02/20--today the patient is requesting discharge, she is here on a voluntary but has not engaged much in treatment has a previous attempt immediately fo llowing an inpatient hospitalization in spring. (1) Mood disorder: --reviewed. Continue current medications and treatment plan. Reviewed that will be d/c Ativan IM as she is taking it as preference and is pushing for discharge. 12/01/20-feels medication are helping. Trileptal added today because she had failed Depakote did not work we will continue Trileptal 150 mg twice daily. Continue Abilify. Patient has required the use of as needed haloperidol. We will continue to monitor denying thoughts of suicide. 11/30/20Recently diagnosed with bipolar disorder reports ongoing depression odd affect restart Abilify 10 mg daily with plan to titrate up patient reported Latuda worked better however unable to obtain that without insurance (2) Bipolar 1 disorder: 12/02/20--reviewed. 12/01/20-feels medication are helping. Trileptal added today because she had failed Depakote did not work we will continue Trileptal 150 mg twice daily. Continue Abilify. Patient has required the use of as needed haloperidol. We will continue to monitor denying thoughts of suicide. 11/30/20- History of being on Abilify and lithium we will hold off on lithium for now given patient's history of overdose has had 2 serious overdose attempts and lithium can be very toxic in overdose consider low-dose Lamictal (3) Anxiety: 12/02/20--reviewed. 12/01/20-patient will take propanolol daily patient feels that it is helping. Continue Klonopin 0.5 mg twice daily patient with no history of substance abuse and significant anxiety for which she escalates very easily. We will continue to monitor. 11-30-20 Patient reports ongoing anxiety got agitated in the emergency room required haloperidol. Will start Klonopin 0.5 twice daily patient has no history of alcohol use no history of alcohol or substance abuse we will also start as nee ded propanolol as needed for agitation patient to start therapy and breathing exercises. Inventory Assets Strengths: Patient works 2 jobs and lives on her own Needs: Outpatient treatment trauma care Risk Factors Assessment Do You Have Access To A Gun?: No Substance Use Disorders: No Previous Attempt: Yes Previous Attempt; Planned: Yes Previous Psychiatric Hospitalization: Yes Protective Factors Assessment : No Responsible for Young Children: No Employed: Yes Stable Relationships: No Supportive Family: No Interval History Chief Complaint "I'm fine, just needed my meds adjusted. I need to get to a tomorrow". Review of Systems Sleep Information Total Hours of Sleep: 8 Sleep Comments: pt given benadryl per rn. pt on q-15 minute checks Meal Information Percent Meal Consumed - Breakfast: 100 Percent Meal Consumed - Lunch: 100 Percent Meal Consumed - Dinner: 100 Subjective Subjective Patient was seen & assessed and interval progress reviewed with treatment team. Liudmila is sleeping this am, staff report hasn't been particularly engaged in care. She has requested prns for anxiety/racing thoughts but also may be med seeking as claimed upset couldn't get in touch with sister, got 2 mg Ativan IM as ordered and staff readily got sister on phone. She reports her new meds are "fine and I like things when they are". Speech seemed a bit slurred and she states baseline due to her having a partial denture. Physical Exam Psychiatric Orientation: oriented x 3 Apperance: appropriately dressed Eye Contact: + fair eye contact Motor Behavior: steady gait and station; no psychomotor agitation Speech: normal rate/rhythm/volume of speech Affect: euthymic affect Mood: + anxious mood Thought Process: goal directed thought process Thought Content: + preoccupation Suicidal Thoughts: denies suicidal thoughts, denies suicidal plan and denies suicidal intent Homicidal Thoughts: denies homicidal thoughts and denies homicidal plan Hallucinations: no auditory hallucinations and no visual hallucinations Cognition: recent memory grossly intact and attention grossly intact Estimated Intelligence: consistent with education level Insight: + limited insight Judgement: + limited judgement Vital Signs (Past 24 Hours) Last Vital Signs Temp 36.4 C L 12/02/20 06:40 Pulse 87 12/02/20 09:15 Resp 16 12/02/20 06:40 BP 97/66 L 12/02/20 09:15 Pulse Ox 96 11/30/20 19:03 Results & Data ([facility]) Laboratory Results Laboratory Results - last 24 hr 12/02/20 08:02 Fasting Glucose 82 Triglycerides 75 Cholesterol 119 LDL Cholesterol, Calc 85 VLDL Cholesterol, Calc 15 HDL Cholesterol 19 Cholesterol/HDL Ratio 6 Current Inpatient Medications Current Inpatient Medications: Current Inpatient Medications Acetaminophen (Acetaminophen 325 Mg Tab) 650 mg PO Q4H PRN PRN Reason: Headache or Minor Fever Stop: 12/30/20 02:36 Al Hydrox/Mg Hydrox/Simethicone (Aluminum/Magnesium Susp 30 Ml Udc) 30 ml PO Q4H PRN PRN Reason: GI Upset Stop: 12/30/20 02:36 Aripiprazole (Aripiprazole 10 Mg Tab) 10 mg PO QAM SHANE Stop: 12/31/20 08:59 Last Admin: 12/02/20 09:04 Dose: 10 mg Documented by: Bismuth Subsalicylate (Bismuth Subsalicylate Liqd 236 Ml) 15 ml PO PRN PRN PRN Reason: Loose Stool Stop: 12/30/20 02:36 Clonazepam (Clonazepam 0.5 Mg Tab) 0.5 mg PO BID [facility] Stop: 12/30/20 20:59 Last Admin: 12/02/20 09:05 Dose: 0.5 mg Documented by: Diphenhydramine HCl (Diphenhydramine 50 Mg/Ml Vial) 50 mg IM Q6 PRN PRN Reason: Agitation Stop: 12/31/20 10:00 Last Admin: 12/01/20 14:23 Dose: 50 mg Documented by: Diphenhydramine HCl (Diphenhydramine Capsule 25 Mg Cap) 50 mg PO Q6 PRN PRN Reason: Agitation, anxiety Stop: 12/31/20 10:05 Last Admin: 12/01/20 21:26 Dose: 50 mg Documented by: Haloperidol (Haloperidol 5 Mg Tab) 5 mg PO Q6 PRN PRN Reason: Agitation Stop: 12/31/20 11:59 Last Admin: 12/02/20 09:09 Dose: 5 mg Documented by: Haloperidol Lactate (Haloperidol Lactate 5 Mg/Ml 1 Ml Vial) 5 mg IM Q6 PRN PRN Reason: Agitation Stop: 12/31/20 09:58 Last Admin: 12/01/20 13:35 Dose: 5 mg Documented by: Lorazepam (Lorazepam 2 Mg/Ml Vial (Im Use)) 2 mg IM Q6 PRN PRN Reason: Agitation Stop: 12/31/20 09:59 Last Admin: 12/01/20 13:38 Dose: 2 mg Documented by: Lorazepam (Lorazepam 1 Mg Tab) 1 mg PO Q6 PRN PRN Reason: Allergic Symptoms Stop: 12/31/20 10:07 Last Admin: 12/01/20 19:39 Dose: 1 mg Documented by: Magnesium Hydroxide (Magnesium Hydroxide Susp 30 Ml Udc) 30 ml PO DAILY PRN PRN Reason: Constipation Stop: 12/30/20 02:36 Oxcarbazepine (Oxcarbazepine 150 Mg Tablet) 150 mg PO BID SHANE Stop: 12/31/20 11:29 Last Admin: 12/02/20 09:04 Dose: 150 mg Documented by: Propranolol HCl (Propranolol Hcl 10 Mg Tab) 10 mg PO BID SHANE Stop: 12/30/20 20:59 Last Admin: 12/02/20 09:12 Dose: Not Given Documented by: Sodium Chloride (Sodium Chloride 0.65% Na Soln 45 Ml (Alger)) 1 - 2 sprays NA PRN PRN PRN Reason: Nasal Dryness/Congestion Stop: 12/30/20 02:36 Mental Health & Subst Abuse Tx Psychiatrist Name of Psychiatrist: [facility]- DWAIN Amaro Psychiatrist's Psychiatric Appointment Comment: [address] [place] [address] Therapist Name of Therapist: [facility]-Meka Rodriguez Therapist's Therapy Appointment Comment: [address] [place] [address] Rn Medical Surgical Name of Rn Medical Surgical: Denies Post Discharge Appointments Primary Care Physician Name Of Family Doctor: Denies Contact Information Discharge Discharge Address: [address] [address]
[2020-12-02] MEDS: diphenhydrAMINE Capsule 25 MG CAP PO PRN (20:31)
[2020-12-03] MEDS: clonazePAM 0.5 MG TAB PO SCH (09:12)
[2020-12-03] MEDS: ARIPiprazole 10 MG TAB PO SCH (09:12)
[2020-12-03] MEDS: PROPRANOLOL HCL 10 MG TAB PO SCH (09:13)
[2020-12-03] MEDS: OXcarbazepine 150 MG TABLET PO SCH (09:13)
--- NOTE | 2020-12-03 09:26 | Discharge Summary ---
Date of Service December 03, 2020 History of Present Illness Per admitting psychiatrist Dr. Greenfield: 25-year-old single female who was apparently stable on to the COVID pandemic. Patient reports no history of prior psychiatric treatment prior to COVID. However during recovery she noticed his worsening mood increased isolation and difficulty with her anxiety during that code with. She had 2 friends who during the. And she was unable to see either of them why they were in the hospital. She reports feeling overwhelmed and very concerned about the isolation she had 2 hospitalizations in August 2020 she spent 2 weeks at at [place] and a day after she got out from [place] she attempted to overdose on her medication that were prescribed to her in [place] and was subsequently admitted at [place] where she did spend 2 weeks. Reports stopping her medications on discharge she did not think they are working and now realizes he may have been working she did not follow-up with outpatient appointments and reports worsening suicidality is unable to identify any new stressors except for the fact that her mood is very low she did report periods of mood instability.. Self increased agitation and anger and significant anxiety. She was subsequently given a diagnosis of bipolar disorder and started on Abilify and lithium. She subsequently discontinued these medications she reported initially been on Latuda which helped her a lot but they were unable to continue Depakote at the time she did not have insurance. Per Case Management ED Psych by Ash Gordon "Met with the patient during Dr. Mathew examination to complete Brief Assessment then completed CM Psychiatric Mental Health Evaluation. When asked if she is having suicidal thoughts, the patient reports kind of. The patient scored an 18 on her Suicide Assessment. The patient appears anxious, pacing in the room. She reports she is supposed to be taking Abilify and [place], but doesnt know what her doses are. The patient denies any current stressors and reports suicidal thoughts for her depressive symptoms. The patient reports her diet is okay and reports poor sleep as sometimes, but not much lately (problems falling and staying asleep). The patient denies recent manic episodes but reports high anxiety (7-8 in the ER) with racing thoughts as her symptoms. The patient denies hallucinations, delusional thinking, drug or alcohol use and being a smoker. The patient denied a history of abuse or trauma, but her visitor stated thats a lie, to which the patient commented, dont call me out like that. The patient reports she has providers through [facility]. Medical clearance explained. Spoke with DEEPTHI Cheema after meeting with the patient and the patient expressed suicidal ideation with a plan to overdose. Deni reports the patient was inpatient twice in August, once after [facility] after threatening to overdose then 2 weeks later at [place] after actually overdosing on her medications." Today she reports ongoing depression and anxiety and wanting her medications to be titrated". She denies hallucinations visual or auditory she does admit to ongoing passive thoughts of but denies any active thoughts she does admit to ongoing depression and reports the last time she felt well was prior to COVID. Reports not being close to her family she does talk to them occasionally her main support structure her friends she reports a family history of her father and her older sister will been diagnosed with bipolar. Physical Exam Mental Examination See admission H&P and DOD summary. Vital Signs (Past 24 Hours) Last Vital Signs Temp 37 C 12/03/20 06:33 Pulse 71 12/03/20 06:33 Resp 17 12/03/20 06:33 BP 100/68 12/03/20 06:33 Pulse Ox 96 11/30/20 19:03 Principal Diagnosis bipolar I disorder Psychiatric Data See daily stay summary. In short, safety was maintained and the patient was cooperative with care overall but tended to stay to herself and not participate much in groups. This did improve over the course of her stay and she consistently denied suicidal ideation on several examinations prior to her discharge. She did request IM Ativan prn on 3 occasions earlier in her stay believing that it would "work better" not for refusal or threatening behavior though she did throw items in the rec therapy room (puzzles to the floor). Medication changes included addition of Klonopin and propranolol to address anxiety as well as Trileptal for mood stabilization and they tolerated this well. Abilify was restarted at 10 mg as not clear she was taking consistently. [place] was discontinued due to concerns about renal toxicity in OD. A family session was held with her older sisters and safety plan was completed prior to discharge in that she agrees to have us speak with brother about pick up attendant about helping her take her old home medications to the pharmacy to be destroyed when she picks up her new ones. She did not want to involve her roommates in med safety plan as "we're friendly but not that close". She remained future focussed with regards to her return to work and had submitted a 72 hr notice last night as very focussed on getting to her friend's service today. She stated her 70 yo grandmotherly figure passes and her friends will be attending the service with her by patient report and she is saddened by the loss but also at peace that her friend is no longer suffering from cancer. She is not exhibiting any signs of job or psychosis. She has consistently denied SI, has reasonable follow up appointments and a plan to minimize risk around her medications. Trileptal will be titrated to 300 mg BID upon discharge with further titration likely on an outpatient basis. She is encouraged to continue reliable control. She contracted to only take Klonopin as prescribed and was made aware of likely short term use. She agrees not to drive or operate machinery or combine with other sedating symptoms like alcohol. Day of Discharge Assessment Today the patient insists on readiness for discharge. They note improvement in mood and deny thoughts to harm self or others. Thoughts remain organized and they are improved from admission. They agree to take mediations as prescribed and keep follow-up appointments. They would benefit from a longer period of inpatient stabilization but do not meet criteria for an involuntary commitment so are therefore discharged to outpatient level of care. Risks that can be mitigated this stay have been mitigated and she is aware of the episodic nature of bipolar disorder. Transition of Care Transition Of Care Record: was reviewed with the patient Advance Directives Advance Directives Information Provided: Yes Advance Directives: No Mental Health Advance Directive: No Advance Directives on File: No Living Will: No Power of Building Analyst/Supervisor: No Advance Directives Reason:: Declines as Mental Health Visit. Risk Factors Assessment Do You Have Access To A Gun?: No Substance Use Disorders: No Previous Attempt: Yes Previous Attempt; Planned: Yes Previous Psychiatric Hospitalization: Yes Protective Factors Assessment : No Responsible for Young Children: No Employed: Yes Stable Relationships: No Supportive Family: No Total Time Total Time Spent: Greater Than 30 Minutes Discharge Data Lab Results 11/29/20 11/29/20 11/29/20 23:20 23:20 23:50 WBC 11.05 H RBC 4.66 Hgb 15.0 Hct 42.5 MCV 91.2 MCH 32.2 MCHC 35.3 RDW Std Deviation 41.0 RDW Coeff of [place] 12.2 Plt Count 322 MPV 9.6 Immature Gran % (Auto) 0.2 Neut % (Auto) 72.7 Lymph % (Auto) 18.0 Richardson % (Auto) 8.2 Eos % (Auto) 0.7 Baso % (Auto) 0.2 Neut # (Auto) 8.03 H Lymph # (Auto) 1.99 Richardson # (Auto) 0.91 H Eos # (Auto) 0.08 Baso # (Auto) 0.02 Immature Gran # (Auto) 0.02 Sodium Potassium Chloride Carbon Dioxide Anion Gap BUN Creatinine Est Cr Clr Drug Dosing Est GFR ( Amer) Est GFR (Non-Af Amer) BUN/Creatinine Ratio Glucose Fasting Glucose Calcium Total Bilirubin AST ALT Alkaline Phosphatase Total Protein Albumin Globulin Albumin/Globulin Ratio Triglycerides Cholesterol LDL Cholesterol, Calc VLDL Cholesterol, Calc HDL Cholesterol Cholesterol/HDL Ratio TSH HCG, Qual Urine Color Yellow Urine Appearance Clear Urine pH 5.5 Ur Specific [place] 1.016 Urine Protein Negative Urine Glucose (UA) Negative Urine Ketones Negative Urine Blood Negative Urine Nitrite Negative Urine Bilirubin Negative Urine Urobilinogen Negative Ur Leukocyte Esterase Negative Salicylates Urine Opiates Screen Neg Ur Methadone, Qual Neg Acetaminophen Urine Barbiturates Neg Ur Phencyclidine (PCP) Neg U Amphetamin/Meth Scrn Neg MDMA (Ecstasy) Screen Neg U Benzodiazepines Scrn Neg [place] Ur Cocaine Metabolite Neg U Marijuana (THC) Screen Neg Ethyl Alcohol mg/dL COVID-19 Eval Order SARS-CoV-2 (PCR) 11/29/20 11/29/20 11/29/20 23:50 23:50 23:50 WBC RBC Hgb Hct MCV MCH MCHC RDW Std Deviation RDW Coeff of [place] Plt Count MPV Immature Gran % (Auto) Neut % (Auto) Lymph % (Auto) Richardson % (Auto) Eos % (Auto) Baso % (Auto) Neut # (Auto) Lymph # (Auto) Richardson # (Auto) Eos # (Auto) Baso # (Auto) Immature Gran # (Auto) Sodium 138 Potassium 4.1 Chloride 109 H Carbon Dioxide 21 Anion Gap 8.0 BUN 14 Creatinine 0.72 Est Cr Clr Drug Dosing 146.9 Est GFR ( Amer) 136.8 Est GFR (Non-Af Amer) 118.0 BUN/Creatinine Ratio 19.1 Glucose 90 Fasting Glucose Calcium 9.0 Total Bilirubin 0.8 AST 21 ALT 30 Alkaline Phosphatase 84 Total Protein 7.9 Albumin 4.4 Globulin 3.4 Albumin/Globulin Ratio 1.3 Triglycerides Cholesterol LDL Cholesterol, Calc VLDL Cholesterol, Calc HDL Cholesterol Cholesterol/HDL Ratio TSH 1.640 HCG, Qual Urine Color Urine Appearance Urine pH Ur Specific [place] Urine Protein Urine Glucose (UA) Urine Ketones Urine Blood Urine Nitrite Urine Bilirubin Urine Urobilinogen Ur Leukocyte Esterase Salicylates < 1.7 L Urine Opiates Screen Ur Methadone, Qual Acetaminophen < 2 L Urine Barbiturates Ur Phencyclidine (PCP) U Amphetamin/Meth Scrn MDMA (Ecstasy) Screen U Benzodiazepines Scrn [place] Ur Cocaine Metabolite U Marijuana (THC) Screen Ethyl Alcohol mg/dL < 3.0 COVID-19 Eval Order SARS-CoV-2 (PCR) 11/29/20 11/29/20 11/30/20 23:50 23:50 00:25 WBC RBC Hgb Hct MCV MCH MCHC RDW Std Deviation RDW Coeff of [place] Plt Count MPV Immature Gran % (Auto) Neut % (Auto) Lymph % (Auto) Richardson % (Auto) Eos % (Auto) Baso % (Auto) Neut # (Auto) Lymph # (Auto) Richardson # (Auto) Eos # (Auto) Baso # (Auto) Immature Gran # (Auto) Sodium Potassium Chloride Carbon Dioxide Anion Gap BUN Creatinine Est Cr Clr Drug Dosing Est GFR ( Amer) Est GFR (Non-Af Amer) BUN/Creatinine Ratio Glucose Fasting Glucose Calcium Total Bilirubin AST ALT Alkaline Phosphatase Total Protein Albumin Globulin Albumin/Globulin Ratio Triglycerides Cholesterol LDL Cholesterol, Calc VLDL Cholesterol, Calc HDL Cholesterol Cholesterol/HDL Ratio TSH HCG, Qual Negative Urine Color Urine Appearance Urine pH Ur Specific [place] Urine Protein Urine Glucose (UA) Urine Ketones Urine Blood Urine Nitrite Urine Bilirubin Urine Urobilinogen Ur Leukocyte Esterase Salicylates Urine Opiates Screen Ur Methadone, Qual Acetaminophen Urine Barbiturates Ur Phencyclidine (PCP) U Amphetamin/Meth Scrn MDMA (Ecstasy) Screen U Benzodiazepines Scrn [place] < 0.2 L Ur Cocaine Metabolite U Marijuana (THC) Screen Ethyl Alcohol mg/dL COVID-19 Eval Order Cov[address] [facility] SARS-CoV-2 (PCR) 11/30/20 12/02/20 00:25 08:02 WBC RBC Hgb Hct MCV MCH MCHC RDW Std Deviation RDW Coeff of [place] Plt Count MPV Immature Gran % (Auto) Neut % (Auto) Lymph % (Auto) Richardson % (Auto) Eos % (Auto) Baso % (Auto) Neut # (Auto) Lymph # (Auto) Richardson # (Auto) Eos # (Auto) Baso # (Auto) Immature Gran # (Auto) Sodium Potassium Chloride Carbon Dioxide Anion Gap BUN Creatinine Est Cr Clr Drug Dosing Est GFR ( Amer) Est GFR (Non-Af Amer) BUN/Creatinine Ratio Glucose Fasting Glucose 82 Calcium Total Bilirubin AST ALT Alkaline Phosphatase Total Protein Albumin Globulin Albumin/Globulin Ratio Triglycerides 75 Cholesterol 119 LDL Cholesterol, Calc 85 VLDL Cholesterol, Calc 15 HDL Cholesterol 19 Cholesterol/HDL Ratio 6 TSH HCG, Qual Urine Color Urine Appearance Urine pH Ur Specific [place] Urine Protein Urine Glucose (UA) Urine Ketones Urine Blood Urine Nitrite Urine Bilirubin Urine Urobilinogen Ur Leukocyte Esterase Salicylates Urine Opiates Screen Ur Methadone, Qual Acetaminophen Urine Barbiturates Ur Phencyclidine (PCP) U Amphetamin/Meth Scrn MDMA (Ecstasy) Screen U Benzodiazepines Scrn [place] Ur Cocaine Metabolite U Marijuana (THC) Screen Ethyl Alcohol mg/dL COVID-19 Eval Order SARS-CoV-2 (PCR) NEGATIVE Hospital Course (1) Mood disorder: --reviewed. Continue current medications and treatment plan. Reviewed that will be d/c Ativan IM as she is taking it as preference and is pushing for discharge. 12/01/20-feels medication are helping. Trileptal added today because she had failed Depakote did not work we will continue Trileptal 150 mg twice daily. Continue Abilify. Patient has required the use of as needed haloperidol. We will continue to monitor denying thoughts of suicide. 11/30/20Recently diagnosed with bipolar disorder reports ongoing depression odd affect restart Abilify 10 mg daily with plan to titrate up patient reported Latuda worked better however unable to obtain that without insurance (2) Bipolar 1 disorder: 12/02/20--reviewed. 12/01/20-feels medication are helping. Trileptal added today because she had failed Depakote did not work we will continue Trileptal 150 mg twice daily. Continue Abilify. Patient has required the use of as needed haloperidol. We will continue to monitor denying thoughts of suicide. 11/30/20- History of being on Abilify and lithium we will hold off on lithium for now given patient's history of overdose has had 2 serious overdose attempts and lithium can be very toxic in overdose consider low-dose Lamictal (3) Anxiety: 12/02/20--reviewed. 12/01/20-patient will take propanolol daily patient feels that it is helping. Continue Klonopin 0.5 mg twice daily patient with no history of substance abuse and significant anxiety for which she escalates very easily. We will continue to monitor. 11-30-20 Patient reports ongoing anxiety got agitated in the emergency room required haloperidol. Will start Klonopin 0.5 twice daily patient has no history of alcohol use no history of alcohol or substance abuse we will also start as needed propanolol as needed for agitation patient to start therapy and breathing exercises. Mental Health & Subst Abuse Tx Psychiatrist Name of Psychiatrist: [facility]- DWAIN Amaro Psychiatrist's Date of Appointment with Psychiatrist: 12/22/20 Time of Appointment with Psychiatrist: 10am Psychiatric Appointment Comment: virtual Therapist Name of Therapist: [facility] - Meka Rodriguez Therapist's Date of Therapist Appointment: 12/09/20 Time of Therapist Appointment: 1pm Therapy Appointment Comment: [place] [id number] Mortgage Loan Interviewer Name of Mortgage Loan Interviewer: Denies Post Discharge Appointments Primary Care Physician Name Of Family Doctor: Recommendation: [facility] Time of Appointment with PCP: Make appointment as needed Provider Appointment Comment: [address] [place] [address], [address], [place] [address] Contact Information Discharge Discharge Address: [address] [place] [address] [place] [address] Discharge Plan Discharge Items Patient Disposition: Home - Self-Care Reason For Visit: MOOD DISORDER UNSPECIFIED Discharge Diagnosis: bipolar I disorder Activity: Resume your previous activity Non-emergency contact: Primary Care Provider, Psychiatrist and Therapist Call non-emergency contact if: you have any medication questions and your symptoms worsen Follow-up/Referrals: PCP,NO [Primary Care Provider] - Diet: Regular Addtl Attending Provider Instructions: SPECIAL CARE INSTRUCTIONS: 1. Follow through with your scheduled aftercare appointments. If unable to keep an appointment, please call to reschedule. 2. Take your medication only as prescribed. Medication should not be changed or stopped without the approval of your doctor. In the event of worsening symptoms or concerns about side effects, contact your doctor immediately. 3. Utilize new healthy coping skills, anger management skills, and stress management skills learned during your hospitalization. Journal feelings and process them with a support person. Identify stressors or situations that may result in relapse, deterioration or inappropriate behaviors and develop a plan to deal with those issues. 4. If your coping skills are ineffective and you are in crisis, contact your outpatient providers for direction. If unable to reach your providers, please call the [facility] CRISIS LINE AT , go to the [facility] walk-in center at [address] [facility], or go to the closest Emergency Room. 5. Avoid alcohol and un-prescribed drugs. 6. You have been provided with the Mental Health Advance Directives Pamphlet for your review. AFTERCARE APPOINTMENTS: * Please call your insurance company prior to your scheduled appointment to confirm your aftercare providers are covered. Take your insurance information to your appointments. WHO TO CALL AND WHEN: Medical Emergencies: For questions or emergencies related to your hospital stay, please contact the Inpatient Behavioral Health Unit at [phone]. A stiff leg derrick operator is on-call 14/01 for the Behavioral Health Unit for emergencies At any time you feel your situation is an emergency, you may also call 911 immediately. Pending Studies at Discharge: No Stand-Alone Forms: My [facility], Smoking Cessation Medications and DC Order Prescriptions: New propranolol 10 mg Tablet 10 mg PO BID 20 Days Qty: 40 RF: 0 aripiprazole [Abilify] 10 mg Tablet 10 mg PO QAM Qty: 20 RF: 0 clonazepam 0.5 mg Tablet 0.5 mg PO BID 20 Days Qty: 50 RF: 0 oxcarbazepine 150 mg Tablet 300 mg PO BID 20 Days Qty: 80 RF: 0 Discharge Orders: Discharge Order (Routine); Ordered 12/03/20 Ordered By: Aziza Mason Admission Data Admit Date/Time: 11/30/20 02:37 Attending Provider: Aziza Mason Admit Provider: Perri Greenfield Primary Care Provider: PCP,NO Other Interventions: PSY Interdisciplinary Discharge Planning Last Done: 12/02/20 15:54 Coding Level of Care Code 97530 D/C day mgmt > 30 min Diagnoses Mood disorder F39 Bipolar 1 disorder F31.9 Anxiety F41.9
== END 2020-12-03 10:30 | disposition home or self-care (01) | DRG 885 ==
LOC: ED 23:03 → 3S 11-30 02:37 → SUATTDRO 11-30 02:37 → 3S 11-30 02:46